=== PATIENT | male | born 1975 | race Caucasian/White ===

== ENCOUNTER 2018-04-18 22:27 | Emergency (ER) | payer SELFPAY ==
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
[2018-04-19 02:29] VITALS: BP 133/89; PULSE 78; RESP 18; TEMP 97.8; O2SAT 98
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
== END 2018-04-19 02:35 | disposition home or self-care (01) ==
LOC: H.ER 22:27
DX: S09.90XA Unspecified injury of head, initial encounter (principal); M54.5 Low back pain; V43.52XA Car driver injured in collision with other type car in traffic accident, initial encounter; Y92.410 Unspecified street and highway as the place of occurrence of the external cause; M51.26 Other intervertebral disc displacement, lumbar region